=== PATIENT | female | born 1945 | race Two or more races ===

== ENCOUNTER → 2021-03-03 08:00 | Outpatient (CLI) | payer OTHER | END | disposition home or self-care (01) | LOC: LAB 08:00 → ADM 14:45 → EDSTATUS 03-10 14:45 → AMB-ENDOS 03-10 14:45 | PROVIDERS: ATTEND Surgery | DX: K62.5 Hemorrhage of anus and rectum (principal); K62.89 Other specified diseases of anus and rectum; K64.2 Third degree hemorrhoids; D64.89 Other specified anemias; Z12.11 Encounter for screening for malignant neoplasm of colon; Z03.818 Encounter for observation for suspected exposure to other biological agents ruled out ==

== ENCOUNTER 2023-12-04 08:00 | Outpatient (CLI) | payer OTHER | END 2023-12-04 08:01 | disposition home or self-care (01) | LOC: NUCLEAR 08:00 | PROVIDERS: ATTEND Internal Medicine Hematology & Oncology | DX: C50.411 Malignant neoplasm of upper-outer quadrant of right female breast (principal); C77.3 Secondary and unspecified malignant neoplasm of axilla and upper limb lymph nodes | CPT/HCPCS: 78815; A9552 ==

== ENCOUNTER 2024-07-05 07:58 | Outpatient (CLI) | payer OTHER | END 2024-07-05 07:59 | disposition home or self-care (01) | LOC: NUCLEAR 07:58 | PROVIDERS: ATTEND Internal Medicine | DX: C50.411 Malignant neoplasm of upper-outer quadrant of right female breast (principal); C50.611 Malignant neoplasm of axillary tail of right female breast | CPT/HCPCS: 78815; A9552 ==

== ENCOUNTER 2024-07-17 09:15 | Inpatient (IN) | payer OTHER ==
[~2024-07-17] VITALS: Ht 149.9 cm; Wt 54.0 kg
[2024-07-17 10:36] LABS: HEMATOCRIT 37.4 % (36.0-45.00); HEMOGLOBIN 12.8 g/dL (12.0-15.00); MEAN CELL VOLUME 90.9 fL (80.00-100.00); MEAN CORPUSCULAR HGB CONC 34.1 g/dl (32.0-36.0); PLATELET COUNT 297 K/uL (150-450); RED BLOOD COUNT 4.12 M/uL (4.00-6.00); RED CELL DISTRIBUTION WIDTH 16.8 % (11.5-14.5); URINE APPEARANCE Turbid; URINE BILIRRUBIN Negative (NEGATIVE); URINE BLOOD Negative; URINE COLOR Yellow; URINE KETONE Negative (NEGATIVE); URINE LEUKOCYTE Moderate; URINE NITRATE Negative; URINE PROTEIN Negative (NEGATIVE); URINE UROBILINOGEN 0.2 E.U./dl
[2024-07-17 10:37] LABS: URINE BACTERIA 8790.9 uL (0.0-1933)
[2024-07-17 10:46] LABS: URINE EPITHELIAL CELLS > 201.7 uL (0.0-38.8); URINE GLUCOSE 500 MG/DL (NEGATIVE); URINE RBC 1.8 uL (0.0-20.8)
[2024-07-17] MEDS ORDERED: SYNTHROID50 MCG PO (11:00)
[2024-07-17] MEDS ORDERED: NORVASC5 MG PO (11:00)
[2024-07-17] MEDS ORDERED: SYNJARDY XR 251 EACH PO (11:00)
[2024-07-17] MEDS ORDERED: COZAAR25 MG PO (11:00)
[2024-07-17] MEDS ORDERED: HYDROCHLOROTHIA25 MG PO (11:01)
[2024-07-17 11:11] LABS: INR 1.04; PARTIAL THROMBOPLASTIN TIME 30.2 SECONDS (22.0-34.0); PROTHROMBIN TIME 11.3 SECONDS (9.0-11.5)
[2024-07-17 11:17] LABS: ALBUMIN 4.3 gm/dL (3.4-5.0); BILIRUBIN TOTAL 0.59 mg/dL (0.3-1.2); CREATININE SERUM 0.79 mg/dL (0.55-1.02); GFR 70.2; GLOBULINA 3.8 G/DL (2.4-3.5); POTASSIUM 4.47 mEq/L (3.5-5.1); TOTAL PROTEIN 8.1 gm/dL (6.4-8.2)
[2024-07-23] MEDS ORDERED: CEFAZOLIN SODIUM 1,000 MG VIAL IV ONE (11:00)
[2024-07-23] MEDS ORDERED: METFORMIN HCL500 M1 (11:01)
[2024-07-23] MEDS ORDERED: CLOPIDOGREL BIS75 MG (11:01)
[2024-07-23] MEDS ORDERED: ATORVASTATIN CA20 MG (11:01)
[2024-07-23] MEDS ORDERED: CHLORTHALIDONE25 MG (11:02)
[2024-07-23] MEDS ORDERED: MORPHINE SULFATE 4 MG/ML VIAL IV ONE ×2 (12:20→13:35)
[2024-07-23] MEDS ORDERED: MEPERIDINE HCL/PF 50 MG/ML VIAL IM PRN (12:30)
[2024-07-23] MEDS ORDERED: POTASSIUM CHLORIDE-0.45% NACL 20 MEQ/1,000 ML PIGGYBAG IV NR (12:30)
[2024-07-23] MEDS ORDERED: OxyCODONE HCL/APAP UD (PERCOCET) PO PRN (12:30)
[2024-07-23] MEDS ORDERED: CEFAZOLIN SODIUM 1,000 MG VIAL IV SCH (17:00)
[2024-07-23 17:20] VITALS: BP 181/89; O2SAT 98
[2024-07-23] MEDS ORDERED: FAMOTIDINE/PF 20 MG/2 ML VIAL IV SCH (21:00)
[2024-07-23 21:50] VITALS: BP 121/85; O2SAT 100
[2024-07-24 00:25] VITALS: BP 151/74; O2SAT 97
[2024-07-24] MEDS ORDERED: ACETAMINOPHEN 500 MG GEL..CAP PO STA (07:02)
[2024-07-24 08:58] VITALS: BP 137/73; O2SAT 99
== END 2024-07-24 10:59 | disposition home or self-care (01) | DRG 582 ==
LOC: O/R 07-23 05:46 → SURG 07-23 05:46 → SURH 07-23 09:00 → SURG 07-23 15:13
PROVIDERS: ADMIT Specialist; ATTEND Specialist
PROC: 0HTT0ZZ Resection of Right Breast, Open Approach (ICD-10-PCS; principal; 2024-07-23 09:00)
DX: D05.11 Intraductal carcinoma in situ of right breast (principal); C77.3 Secondary and unspecified malignant neoplasm of axilla and upper limb lymph nodes; Z20.822 Contact with and (suspected) exposure to COVID-19

== ENCOUNTER 2024-07-26 10:25 | Inpatient (IN) | payer OTHER ==
[~2024-07-26] VITALS: Ht 142.2 cm; Wt 54.0 kg
[~2024-07-26 10:25] MED LIST: ATORVASTATIN CA20 MG; CHLORTHALIDONE25 MG; CLOPIDOGREL BIS75 MG; COZAAR25 MG PO; HYDROCHLOROTHIA25 MG PO; METFORMIN HCL500 M1; NORVASC5 MG PO; SYNJARDY XR 251 EACH PO; SYNTHROID50 MCG PO
--- NOTE | 2024-07-26 10:59 | NUR ---
PTE ALERTA Y ORIENTADA X3 EN COMPANIA DE ENCARGADA, QUIEN REFIERE PTE MCQUEEN ESTADO VOMINTANDO JALEESA, LUEGO DE OSIEL TENIDO OPERACION EL MARCEL , POR EL DR. FORRESTER. SE MIDEN SV Y SE UBICA.
[2024-07-26] MEDS ORDERED: PANTOPRAZOLE SODIUM 40 MG/VIAL VIAL IV ONE (13:00)
[2024-07-26] MEDS ORDERED: 0.9 % SODIUM CHLORIDE 1,000 ML IV ONE ×2 (13:00→17:45)
[2024-07-26 13:26] LABS: ABG PH 7.487 (7.35-7.45); ABG PO2 75.8 mmHg (80-100); ABG pCO2 38.9 mmHg (35-45); BASE EXCESS 5.2 mmol/l; BICARBONATE 28.8 mmol/l (23-25); SaO2 96.3 %
[2024-07-26 13:35] LABS: MEAN CELL VOLUME 90.1 fL (80.00-100.00); PLATELET COUNT 218 K/uL (150-450); RED BLOOD COUNT 2.26 M/uL (4.00-6.00); RED CELL DISTRIBUTION WIDTH 16.5 % (11.5-14.5)
[2024-07-26 13:38] LABS: HEMATOCRIT 20.3 % (36.0-45.00); HEMOGLOBIN 6.9 g/dL (12.0-15.00); MEAN CORPUSCULAR HEMOGLOBIN 30.5 pg (27.00-32.0)
[2024-07-26 13:50] LABS: INR 1.05; PARTIAL THROMBOPLASTIN TIME 21.7 SECONDS (22.0-34.0); PROTHROMBIN TIME 11.4 SECONDS (9.0-11.5)
[2024-07-26 13:57] LABS: ALBUMIN 3.3 gm/dL (3.4-5.0); BILIRUBIN TOTAL 0.38 mg/dL (0.3-1.2); CREATININE SERUM 1.05 mg/dL (0.55-1.02); GFR 50.56; GLOBULINA 3.3 G/DL (2.4-3.5); POTASSIUM 4.35 mEq/L (3.5-5.1); TOTAL PROTEIN 6.6 gm/dL (6.4-8.2)
--- NOTE | 2024-07-26 14:04 | NUR ---
SE RECIBE PTE ALERTA ORIENTADA X3.SE CARLI MUESTRAS DE LABORATORIO USANDO MEDIDAS ASEPTOCAS.SE ADMINISTRAN MEDICAMENTOS ALVARO ORDEN MEDICA.SE ORIENTA PTE SOBRE OBJETIVO DE TX MEDICO.PENDIENTE U/A.
--- NOTE | 2024-07-26 14:19 | NUR ---
SE RECIBE PTE ALERTA Y ORIENTADA X3 EN LA UNIDAD DE CHEST PAIN, SE CONECTA A MONITOR CARDIACO Y OXIMETRIA DE PULSO CONTINUA, PTE CON UN ANGIO #20 EN RT BAJANDO UN 0.9%NSS @60MLS/HRS, SE MANTIENE BAJO OBSERVACION POR CAMBIOS SIGNIFICATIVOS.
[2024-07-26 14:57] LABS: allen test SATISFACTORY; o2 21 %; puncture site RADIAL LEFT
--- NOTE | 2024-07-26 15:36 | NUR ---
SE RECIBE PTE FEMENINA ALERTA Y ORIENTADA EN PERSONA Y LUGAR DEL TURNO ANTERIOR, CONECTADA A MONITOR CARDIACO Y OXIMETRIA DE PULSO CONTINUA. PTE CON BUEN PATRON RESPIRATORIO Y SIN QUEJA DE DOLOR AL MOMENTO. VENOPUNCION EN BRAZO R+, SAMMI DE EDEMA Y ERITEMA RECIBIENDO TERAPIA DE IVFS 0.9NSS BAJANDO A 60ML/HR. PTE EN CAMA NIVEL MAS BAJO CON BARANDAS ELEVADAS Y FRENOS COLOCADOS POR SEGURIDAD. PENDIENTE CONSULTA CON YA NOTIFICADA. SE CARLI Y REPORTAN S/V. SE REMUEVE VENOPUNCION DE BRAZO R+, BAJO MEDIDAS ASEPTICAS. SE CANALZIA VENA X2 EN BRAZO L+ CON ANGIO #20 Y #22, BAJO MEDIDAS ASEPTICAS AREA SAMMI DE EDEMA Y ERITEMA. SE MANTIENE BAJO OBSERVACION POR CAMBIOS.
[2024-07-26] MEDS ORDERED: CEFTRIAXONE SODIUM 2,000 MG in 0.9 % SODIUM CHLORIDE 100 ML IV SCH (17:14)
[2024-07-26] MEDS ORDERED: PANTOPRAZOLE SODIUM 80 MG in 0.9 % SODIUM CHLORIDE 100 ML IV SCH (17:15)
[2024-07-26] MEDS ORDERED: PANTOPRAZOLE SODIUM 40 MG/VIAL VIAL IV PUSH ONE (17:15)
[2024-07-26] MEDS ORDERED: FUROsemide 20 MG/2 ML VIAL IV SCH (17:15)
[2024-07-26] MEDS ORDERED: OCTREOTIDE ACETATE 1,250 MCG in 0.9 % SODIUM CHLORIDE 250 ML IV SCH (17:15)
[2024-07-26] MEDS ORDERED: DILTIAZEM HCL 25 MG/5 ML VIAL IV ONE (17:15)
[2024-07-26] MEDS ORDERED: OCTREOTIDE ACETATE 0.05MG/ML (50MCG/ML) AMPUL IV ONE (17:15)
[2024-07-26] MEDS ORDERED: 0.9 % SODIUM CHLORIDE 1,000 ML IV SCH (17:30)
[2024-07-26] MEDS ORDERED: DEXTROSE 50 % IN WATER 0.5 G/ML DISP.SYRIN IV PRN (17:45)
[2024-07-26] MEDS ORDERED: INSULIN LISPRO 1,000 UNIT/10 ML UNITS SUBCUTANEO PRN (17:45)
[2024-07-26] MEDS ORDERED: ONDANSETRON HCL 4 MG in 0.9 % SODIUM CHLORIDE 50 ML IV ONE (17:45)
[2024-07-26] MEDS ORDERED: ONDANSETRON HCL 4 MG in 0.9 % SODIUM CHLORIDE 50 ML IV PRN (17:45)
[2024-07-26 19:24] LABS: PHOSPHOROUS 5.2 mg/dL (2.5-4.9)
[2024-07-26 19:27] LABS: C-REACTIVE PROTEIN 3.15 MG/DL (0.00-0.29)
[2024-07-26 19:38] VITALS: BP 132/77; O2SAT 99
[2024-07-26 19:45] LABS: COL EPI 119 SECONDS (82-175)
[2024-07-26 21:00] VITALS: BP 106/75; O2SAT 100
[2024-07-26] MEDS ORDERED: INSULIN NPH HUMAN ISOPHANE 1,000 UNITS/10 ML UNITS SUBCUTANEO SCH (21:00)
[2024-07-26 21:42] LABS: URINE APPEARANCE Clear; URINE BILIRRUBIN Negative (NEGATIVE); URINE BLOOD Negative; URINE COLOR Yellow; URINE KETONE Trace (NEGATIVE); URINE LEUKOCYTE Negative; URINE NITRATE Negative; URINE PROTEIN Negative (NEGATIVE); URINE UROBILINOGEN 0.2 E.U./dl
[2024-07-26 21:45] LABS: URINE BACTERIA 250.7 uL (0.0-1933); URINE EPITHELIAL CELLS 10.9 uL (0.0-38.8); URINE WBC 3.8 uL (0.0-23.2)
[2024-07-26 21:53] LABS: URINE GLUCOSE >=1000 MG/DL (NEGATIVE); URINE RBC 0.7 uL (0.0-20.8)
[2024-07-26 23:09] VITALS: BP 148/74; O2SAT 100
[2024-07-27 04:02] VITALS: BP 145/80; O2SAT 99
[2024-07-27] MEDS ORDERED: LEVOTHYROXINE SODIUM 50 MCG TABLET PO SCH (06:00)
[2024-07-27 08:01] VITALS: BP 150/57; O2SAT 100
[2024-07-27 12:00] VITALS: BP 152/84; O2SAT 100
[2024-07-27] MEDS ORDERED: ENALAPRILAT DIHYDRATE 1.25 MG/ML VIAL IV SCH (12:00)
[2024-07-27 15:10] VITALS: BP 155/93; O2SAT 100
[2024-07-27] MEDS ORDERED: OCTREOTIDE ACETATE IV SCH (18:00)
[2024-07-27 20:00] VITALS: BP 157/88; O2SAT 100
[2024-07-27 23:35] VITALS: BP 144/77; O2SAT 100
[2024-07-28 04:15] VITALS: BP 159/78; O2SAT 100
[2024-07-28] MEDS ORDERED: MORPHINE SULFATE 2 MG/ML SYRINGE IV ONE (05:15)
[2024-07-28 07:33] VITALS: BP 142/95; O2SAT 100
[2024-07-28] MEDS ORDERED: GABAPENTIN 300 MG CAPSULE PO SCH (09:00)
[2024-07-28 12:00] VITALS: BP 159/88; O2SAT 100
[2024-07-28 12:33] LABS: HEMATOCRIT 35.1 % (36.0-45.00); HEMOGLOBIN 12.1 g/dL (12.0-15.00); MEAN CELL VOLUME 85.9 fL (80.00-100.00); MEAN CORPUSCULAR HEMOGLOBIN 29.6 pg (27.00-32.0); MEAN CORPUSCULAR HGB CONC 34.4 g/dl (32.0-36.0); PLATELET COUNT 231 K/uL (150-450); RED BLOOD COUNT 4.08 M/uL (4.00-6.00); RED CELL DISTRIBUTION WIDTH 16.5 % (11.5-14.5)
[2024-07-28 13:27] LABS: ALBUMIN 3.2 gm/dL (3.4-5.0); BILIRUBIN TOTAL 0.66 mg/dL (0.3-1.2); CALCIUM 8.5 mg/dL (8.5-10.1); CREATININE SERUM 0.82 mg/dL (0.55-1.02); GFR 67.25; GLOBULINA 3.5 G/DL (2.4-3.5); PHOSPHOROUS 2.9 mg/dL (2.5-4.9); TOTAL PROTEIN 6.7 gm/dL (6.4-8.2)
[2024-07-28 13:39] LABS: TSH 0.101 uIU/mL (0.358-3.74)
[2024-07-28 13:42] LABS: POTASSIUM 2.73 mEq/L (3.5-5.1)
[2024-07-28 15:40] VITALS: BP 154/78; O2SAT 100
[2024-07-28] MEDS ORDERED: POTASSIUM CHLORIDE IN WATER 40 MEQ/100 ML PIGGYBAG IV SCH (17:00)
[2024-07-28 20:00] VITALS: BP 128/73; O2SAT 100
[2024-07-28 23:37] VITALS: BP 112/66; O2SAT 100
[2024-07-29 04:03] VITALS: BP 138/81; O2SAT 100
[2024-07-29 07:00] VITALS: BP 164/75; O2SAT 100
[2024-07-29 12:39] VITALS: BP 156/89; O2SAT 95
[2024-07-29 15:23] VITALS: BP 151/80; O2SAT 98
[2024-07-29 20:00] VITALS: BP 161/82; O2SAT 100
[2024-07-29] MEDS ORDERED: PANTOPRAZOLE SODIUM 40 MG/VIAL VIAL IV PUSH SCH (21:00)
[2024-07-29 23:11] VITALS: BP 162/81; O2SAT 100
[2024-07-30 04:00] VITALS: BP 151/80; O2SAT 100
[2024-07-30 06:54] LABS: HEMATOCRIT 33.6 % (36.0-45.00); HEMOGLOBIN 11.4 g/dL (12.0-15.00); MEAN CELL VOLUME 90.4 fL (80.00-100.00); MEAN CORPUSCULAR HEMOGLOBIN 30.5 pg (27.00-32.0); MEAN CORPUSCULAR HGB CONC 33.7 g/dl (32.0-36.0); PLATELET COUNT 222 K/uL (150-450); RED BLOOD COUNT 3.72 M/uL (4.00-6.00); RED CELL DISTRIBUTION WIDTH 17.1 % (11.5-14.5)
[2024-07-30 07:18] VITALS: BP 136/84; O2SAT 100
[2024-07-30 07:40] LABS: ALBUMIN 2.8 gm/dL (3.4-5.0); BILIRUBIN TOTAL 0.64 mg/dL (0.3-1.2); CALCIUM 8.5 mg/dL (8.5-10.1); CREATININE SERUM 0.68 mg/dL (0.55-1.02); FREE TRIODOTIRONINE 0.76 pg/ml (2.18-3.98); GFR 83.47; GLOBULINA 2.9 G/DL (2.4-3.5); MAGNESIUM 2.1 mg/dL (1.8-2.4); POTASSIUM 3.17 mEq/L (3.5-5.1); T4 FREE 1.06 NG/ML (0.76-1.46); TOTAL PROTEIN 5.7 gm/dL (6.4-8.2)
[2024-07-30 12:11] VITALS: BP 139/76; O2SAT 100
[2024-07-30 15:24] VITALS: BP 142/67; O2SAT 97
[2024-07-30 20:00] VITALS: BP 125/70; O2SAT 100
[2024-07-30] MEDS ORDERED: SODIUM CHLORIDE 0.45 % 1,000 ML IV SCH (21:15)
[2024-07-30 23:34] VITALS: BP 124/66; O2SAT 97
[2024-07-31 04:00] VITALS: BP 140/67; O2SAT 100
[2024-07-31 07:30] VITALS: BP 139/59; O2SAT 100
[2024-07-31 08:41] LABS: HEMATOCRIT 31.9 % (36.0-45.00); HEMOGLOBIN 10.8 g/dL (12.0-15.00); MEAN CELL VOLUME 88.6 fL (80.00-100.00); MEAN CORPUSCULAR HEMOGLOBIN 29.9 pg (27.00-32.0); MEAN CORPUSCULAR HGB CONC 33.7 g/dl (32.0-36.0); PLATELET COUNT 188 K/uL (150-450); RED CELL DISTRIBUTION WIDTH 16.3 % (11.5-14.5)
[2024-07-31 09:51] LABS: ALBUMIN 2.5 gm/dL (3.4-5.0); BILIRUBIN TOTAL 0.62 mg/dL (0.3-1.2); CALCIUM 7.8 mg/dL (8.5-10.1); CREATININE SERUM 0.38 mg/dL (0.55-1.02); GFR 163.36; GLOBULINA 2.6 G/DL (2.4-3.5); MAGNESIUM 1.7 mg/dL (1.8-2.4); POTASSIUM 3.22 mEq/L (3.5-5.1); TOTAL PROTEIN 5.1 gm/dL (6.4-8.2)
[2024-07-31 12:00] VITALS: BP 132/71; O2SAT 100
[2024-07-31] MEDS ORDERED: MAGNESIUM SULFATE IN WATER 50 ML IV NR (14:30)
[2024-07-31 15:37] VITALS: BP 124/67; O2SAT 100
[2024-07-31] MEDS ORDERED: POTASSIUM CHLORIDE IN WATER 40 MEQ/100 ML PIGGYBAG IV SCH (17:00)
[2024-07-31] MEDS ORDERED: PANTOPRAZOLE SODIUM 40 MG TABLET.DR PO SCH (17:00)
[2024-08-01 01:06] VITALS: BP 136/68
[2024-08-01 08:36] VITALS: BP 148/80; O2SAT 98
[2024-08-01 16:08] LABS: HEMOGLOBIN 10.8 g/dL (12.0-15.00); MEAN CELL VOLUME 88.8 fL (80.00-100.00); MEAN CORPUSCULAR HGB CONC 33.7 g/dl (32.0-36.0); PLATELET COUNT 183 K/uL (150-450); RED CELL DISTRIBUTION WIDTH 16.3 % (11.5-14.5)
[2024-08-01 18:11] VITALS: BP 141/85; O2SAT 97
[2024-08-02 01:51] VITALS: BP 135/77
[2024-08-02] MEDS ORDERED: INSULIN NPH HUM/REG INSULIN HM 1,000 UNIT/10 ML UNITS SUBCUTANEO SCH (08:00)
[2024-08-02 09:11] VITALS: BP 135/86; O2SAT 96
[2024-08-02] MEDS ORDERED: PANTOPRAZOLE SO40 MG PO (16:53)
[2024-08-02 18:06] VITALS: BP 102/63; O2SAT 97
== END 2024-08-02 21:03 | disposition home or self-care (01) | DRG 811 ==
LOC: ER 10:25 → ICU-2 17:49 → ICU 21:08 → MEDJ 07-31 20:16 → MEDI 08-02 16:38
PROVIDERS: General Practice; Internal Medicine Hematology & Oncology; ADMIT Internal Medicine; ATTEND Internal Medicine
PROC: 4A12X4Z Monitoring of Cardiac Electrical Activity, External Approach (ICD-10-PCS; 2024-07-26)
PROC: BW21ZZZ Computerized Tomography (CT Scan) of Abdomen and Pelvis (ICD-10-PCS; 2024-07-26)
PROC: BB24ZZZ Computerized Tomography (CT Scan) of Bilateral Lungs (ICD-10-PCS; 2024-07-26)
PROC: 30233N1 Transfusion of Nonautologous Red Blood Cells into Peripheral Vein, Percutaneous Approach (ICD-10-PCS; principal; 2024-07-27)
PROC: 3E1G78Z Irrigation of Upper GI using Irrigating Substance, Via Natural or Artificial Opening (ICD-10-PCS; 2024-07-27)
PROC: 02HV33Z Insertion of Infusion Device into Superior Vena Cava, Percutaneous Approach (ICD-10-PCS; 2024-07-27)
PROC: 3E04329 Introduction of Other Anti-infective into Central Vein, Percutaneous Approach (ICD-10-PCS; 2024-07-27)
PROC: 0DJ08ZZ Inspection of Upper Intestinal Tract, Via Natural or Artificial Opening Endoscopic (ICD-10-PCS; 2024-07-29)
PROC: 3E0336Z Introduction of Nutritional Substance into Peripheral Vein, Percutaneous Approach (ICD-10-PCS; 2024-07-29)
PROC: BR29ZZZ Computerized Tomography (CT Scan) of Lumbar Spine (ICD-10-PCS; 2024-08-01)
DX: D64.89 Other specified anemias (principal); J96.90 Respiratory failure, unspecified, unspecified whether with hypoxia or hypercapnia; K92.0 Hematemesis; L76.22 Postprocedural hemorrhage of skin and subcutaneous tissue following other procedure; I48.20 Chronic atrial fibrillation, unspecified; C50.411 Malignant neoplasm of upper-outer quadrant of right female breast; D63.0 Anemia in neoplastic disease; E11.65 Type 2 diabetes mellitus with hyperglycemia; K25.9 Gastric ulcer, unspecified as acute or chronic, without hemorrhage or perforation; D3A.8 Other benign neuroendocrine tumors; I10 Essential (primary) hypertension; E03.9 Hypothyroidism, unspecified; Z79.4 Long term (current) use of insulin; Z79.84 Long term (current) use of oral hypoglycemic drugs; Z92.21 Personal history of antineoplastic chemotherapy; Y83.8 Other surgical procedures as the cause of abnormal reaction of the patient, or of later complication, without mention of misadventure at the time of the procedure

== ENCOUNTER 2024-11-18 13:33 | Inpatient (IN) | payer OTHER ==
[~2024-11-18] VITALS: Ht 147.3 cm; Wt 50.8 kg
[~2024-11-18 13:33] MED LIST changes: +PANTOPRAZOLE SO40 MG PO
--- NOTE | 2024-11-18 13:50 | NUR ---
PACIENTE ALERTA Y ORIENTADA X3 QUIEN REFIERE DOLOR ABDOMINAL Y VOMITOS CON JALEESA DESDE EL DOMITILA DE AIYANA. CUIDADORA INDICA PACIENTE PRESENTO VOMITOS X3 EN EL DOMITILA DE HOY ULTIMO VOMITO HACE HOME HORA.
[2024-11-18] MEDS ORDERED: ONDANSETRON HCL 2 MG/ML VIAL IV STA (14:12)
[2024-11-18] MEDS ORDERED: FAMOTIDINE/PF 20 MG in 0.9 % SODIUM CHLORIDE 8 ML IV PUSH STA (14:12)
[2024-11-18] MEDS ORDERED: 0.9 % SODIUM CHLORIDE 1,000 ML IV SCH ×2 (14:15→19:45)
[2024-11-18] MEDS ORDERED: ONDANSETRON HCL 2 MG/ML VIAL ONE (14:20)
[2024-11-18] MEDS ORDERED: FAMOTIDINE/PF 20 MG/2 ML VIAL ONE (14:20)
[2024-11-18] MEDS ORDERED: BARIUM SULFATE 450 ML ORAL.SUSP PO ONE (14:21)
--- NOTE | 2024-11-18 14:31 | NUR ---
SE ORIENTA A PACIENTE SOBRE TX MEDICO, REFIERE ENTENDER. SE REALIZAN MUESTRAS DE LABORATORIO BAJO MEDIDAS ASEPTICAS. SE ADMINISTRAN MEDICAMENTOS ALVARO ORDEN MEDICA. SE COORDINA CT. PACIENTE MANEJADA POR . PENDIENTE RE-EVALUACION MEDICA.
[2024-11-18 15:20] LABS: CALCIUM 9.5 mg/dL (8.5-10.1); CREATININE SERUM 1.23 mg/dL (0.55-1.02); GFR 42.12; POTASSIUM 3.19 mEq/L (3.5-5.1)
--- NOTE | 2024-11-18 15:20 | NUR ---
SE RECIBE A PACIENTE ALERTA Y ORIENTADO X3 EN CAMA A NIVEL DE PISO JUNTO CON BARRANDAS ELEVADAS. CANALIZADA CON #20 EN LT ARM BAJANDO 0.9NSS A 100ML/HR. PENDIENTE A ENTREGA DE U/A Y CT PO A LAS 4:50PM.
[2024-11-18 15:34] LABS: MEAN CELL VOLUME 87.4 fL (80.00-100.00); MEAN CORPUSCULAR HGB CONC 33.9 g/dl (32.0-36.0); PLATELET COUNT 272 K/uL (150-450); RED BLOOD COUNT 2.57 M/uL (4.00-6.00); RED CELL DISTRIBUTION WIDTH 16.2 % (11.5-14.5)
[2024-11-18 15:39] LABS: HEMATOCRIT 22.4 % (36.0-45.00); HEMOGLOBIN 7.6 g/dL (12.0-15.00); MEAN CORPUSCULAR HEMOGLOBIN 29.5 pg (27.00-32.0)
[2024-11-18 17:36] LABS: URINE APPEARANCE Clear; URINE BILIRRUBIN Negative (NEGATIVE); URINE BLOOD Negative; URINE COLOR Yellow; URINE KETONE Negative (NEGATIVE); URINE LEUKOCYTE Negative; URINE NITRATE Negative; URINE PROTEIN Negative (NEGATIVE); URINE UROBILINOGEN 0.2 E.U./dl
[2024-11-18 17:40] LABS: URINE BACTERIA 862.5 uL (0.0-1933); URINE EPITHELIAL CELLS 23.2 uL (0.0-38.8); URINE WBC 11.7 uL (0.0-23.2)
[2024-11-18 17:47] LABS: URINE CAST 0.29 uL (0.0-1.40); URINE GLUCOSE >=1000 MG/DL (NEGATIVE); URINE RBC 0.7 uL (0.0-20.8)
[2024-11-18] MEDS ORDERED: CEFTRIAXONE SODIUM 2,000 MG in 0.9 % SODIUM CHLORIDE 100 ML IV SCH (19:32)
[2024-11-18] MEDS ORDERED: PANTOPRAZOLE SODIUM 80 MG in 0.9 % SODIUM CHLORIDE 100 ML IV SCH (19:45)
[2024-11-18] MEDS ORDERED: ONDANSETRON HCL 4 MG in 0.9 % SODIUM CHLORIDE 50 ML IV PRN (19:45)
[2024-11-18] MEDS ORDERED: PANTOPRAZOLE SODIUM 40 MG/VIAL VIAL IV PUSH ONE (19:45)
[2024-11-18] MEDS ORDERED: ENALAPRILAT DIHYDRATE 1.25 MG/ML VIAL IV PRN (20:00)
[2024-11-18 22:19] LABS: INR 1.05; PARTIAL THROMBOPLASTIN TIME 20.6 SECONDS (22.0-34.0); PROTHROMBIN TIME 11.4 SECONDS (9.0-11.5)
[2024-11-18] MEDS ORDERED: CEFTRIAXONE SODIUM 2,000 MG VIAL ONE (22:36)
[2024-11-18] MEDS ORDERED: FUROsemide 20 MG/2 ML VIAL IV SCH (23:00)
[2024-11-19] VITALS (7 sets, daily range): BP systolic 108–147; BP diastolic 55–84; O2SAT 96–100
[2024-11-19] MEDS ORDERED: CHLORHEXIDINE GLUCONATE 120 ML BOTTLE TOP ONE (09:36)
[2024-11-19] MEDS ORDERED: INSULIN LISPRO 1,000 UNIT/10 ML UNITS SUBCUTANEO PRN (14:30)
[2024-11-19] MEDS ORDERED: DEXTROSE 50 % IN WATER 0.5 G/ML DISP.SYRIN IV PRN (14:30)
[2024-11-19 16:39] LABS: URINE APPEARANCE Clear; URINE BILIRRUBIN Negative (NEGATIVE); URINE BLOOD Negative; URINE COLOR Yellow; URINE KETONE Negative (NEGATIVE); URINE LEUKOCYTE Negative; URINE NITRATE Negative; URINE PROTEIN Negative (NEGATIVE); URINE UROBILINOGEN 0.2 E.U./dl
[2024-11-19 16:43] LABS: URINE BACTERIA 4.8 uL (0.0-1933); URINE WBC 3.9 uL (0.0-23.2)
[2024-11-19 17:04] LABS: URINE CAST 0.14 uL (0.0-1.40); URINE EPITHELIAL CELLS 0.6 uL (0.0-38.8); URINE GLUCOSE >=1000 MG/DL (NEGATIVE); URINE RBC 0.7 uL (0.0-20.8)
[2024-11-19] MEDS ORDERED: LORazepam 2 MG/ML VIAL IV NR (17:30)
[2024-11-20 01:23] LABS: HEMATOCRIT 43.8 % (36.0-45.00); MEAN CELL VOLUME 86.6 fL (80.00-100.00); MEAN CORPUSCULAR HGB CONC 34.6 g/dl (32.0-36.0); PLATELET COUNT 222 K/uL (150-450); RED BLOOD COUNT 5.06 M/uL (4.00-6.00); RED CELL DISTRIBUTION WIDTH 15.7 % (11.5-14.5)
[2024-11-20 01:25] LABS: HEMOGLOBIN 15.2 g/dL (12.0-15.00)
[2024-11-20 04:00] VITALS: BP 89/63; O2SAT 100
[2024-11-20 06:57] VITALS: BP 129/83; O2SAT 100
[2024-11-20 12:00] VITALS: BP 136/79; O2SAT 100
[2024-11-20 15:37] VITALS: BP 126/78; O2SAT 100
[2024-11-20 20:00] VITALS: BP 135/81; O2SAT 97
[2024-11-20] MEDS ORDERED: ORPHENADRINE CITRATE 100 MG TABLET PO STA (20:02)
[2024-11-20 23:24] VITALS: BP 111/69; O2SAT 97
[2024-11-21 03:59] VITALS: BP 178/79; O2SAT 98
[2024-11-21 05:52] VITALS: BP 164/91; O2SAT 98
[2024-11-21 07:00] LABS: URINE APPEARANCE Error; URINE BILIRRUBIN Negative (NEGATIVE); URINE BLOOD Large; URINE COLOR Orange; URINE KETONE 15 (NEGATIVE); URINE LEUKOCYTE Moderate; URINE NITRATE Negative; URINE PROTEIN 30 (NEGATIVE); URINE UROBILINOGEN 0.2 E.U./dl
[2024-11-21 07:03] LABS: URINE BACTERIA 176.2 uL (0.0-1933); URINE CAST 1.47 uL (0.0-1.40); URINE EPITHELIAL CELLS 4.7 uL (0.0-38.8); URINE RBC 3266.4 uL (0.0-20.8); URINE WBC 293.4 uL (0.0-23.2)
[2024-11-21 07:19] VITALS: BP 91/66; O2SAT 98
[2024-11-21 07:20] LABS: URIC ACID 4.5 mg/dL (2.5-7.5)
[2024-11-21 07:31] LABS: URINE GLUCOSE >=1000 MG/DL (NEGATIVE)
[2024-11-21 07:34] LABS: T4 TOTAL 8.43 UG/DL (4.8-13.9); TSH 3.05 uIU/mL (0.358-3.74)
[2024-11-21 07:36] LABS: ALBUMIN 3.7 gm/dL (3.4-5.0); BILIRUBIN TOTAL 0.87 mg/dL (0.3-1.2); CALCIUM 8.8 mg/dL (8.5-10.1); CREATININE SERUM 0.67 mg/dL (0.55-1.02); GFR 84.9; GLOBULINA 3.3 G/DL (2.4-3.5)
[2024-11-21 07:51] LABS: POTASSIUM 2.44 mEq/L (3.5-5.1)
[2024-11-21] MEDS ORDERED: ORPHENADRINE CITRATE 100 MG TABLET PO SCH (09:00)
[2024-11-21] MEDS ORDERED: POTASSIUM CHLORIDE 20MEQ/100ML H2O PB IV SCH (09:00)
[2024-11-21] MEDS ORDERED: POTASSIUM CHLORIDE 20MEQ/100ML H2O PB IV ONE (09:55)
[2024-11-21] MEDS ORDERED: SODIUM CL 0.9% 100 ML IV.SOLN IV ONE (10:30)
[2024-11-21 12:00] VITALS: BP 137/72; O2SAT 100
[2024-11-21] MEDS ORDERED: BISACODYL 5 MG TABLET.EC PO NR (12:00)
[2024-11-21 17:45] VITALS: BP 158/80
[2024-11-22 01:26] VITALS: BP 97/60; O2SAT 96
[2024-11-22] MEDS ORDERED: PANTOPRAZOLE SODIUM 40 MG/VIAL VIAL ONE (05:42)
[2024-11-22 07:21] LABS: ALBUMIN 3.2 gm/dL (3.4-5.0); BILIRUBIN TOTAL 0.53 mg/dL (0.3-1.2); CALCIUM 8.8 mg/dL (8.5-10.1); CREATININE SERUM 0.62 mg/dL (0.55-1.02); GFR 92.85; GLOBULINA 3.1 G/DL (2.4-3.5); TOTAL PROTEIN 6.3 gm/dL (6.4-8.2)
[2024-11-22 07:23] LABS: HEMATOCRIT 43.6 % (36.0-45.00); HEMOGLOBIN 14.7 g/dL (12.0-15.00); MEAN CORPUSCULAR HGB CONC 33.7 g/dl (32.0-36.0); RED BLOOD COUNT 4.89 M/uL (4.00-6.00); RED CELL DISTRIBUTION WIDTH 15.5 % (11.5-14.5)
[2024-11-22 07:31] LABS: POTASSIUM 3.13 mEq/L (3.5-5.1)
[2024-11-22 08:17] LABS: PLATELET COUNT 217 K/uL (150-450)
[2024-11-22 08:34] VITALS: BP 118/69; O2SAT 97
[2024-11-22] MEDS ORDERED: METROnidazole 500 MG TABLET PO SCH (13:03)
[2024-11-22] MEDS ORDERED: POTASSIUM CHLORIDE IN WATER 100 ML IV NR (14:00)
[2024-11-22] MEDS ORDERED: BISACODYL 5 MG TABLET.EC PO NR (17:00)
[2024-11-22] MEDS ORDERED: POTASSIUM CHLORIDE IN WATER 100 ML IV SCH (17:00)
[2024-11-22 17:08] VITALS: BP 133/76; O2SAT 98
[2024-11-23 03:04] VITALS: BP 144/80; O2SAT 98
[2024-11-23] MEDS ORDERED: LEVOTHYROXINE SODIUM 50 MCG TABLET PO SCH (06:00)
[2024-11-23] MEDS ORDERED: PANTOPRAZOLE SODIUM 40 MG/VIAL VIAL IV SCH (09:00)
[2024-11-23 09:45] VITALS: BP 157/84; O2SAT 99
[2024-11-23 16:15] VITALS: BP 143/79; O2SAT 97
[2024-11-24 00:46] VITALS: BP 148/84
[2024-11-24 08:13] LABS: HEMATOCRIT 39.3 % (36.0-45.00); HEMOGLOBIN 13.2 g/dL (12.0-15.00); MEAN CELL VOLUME 89.5 fL (80.00-100.00); MEAN CORPUSCULAR HGB CONC 33.5 g/dl (32.0-36.0); PLATELET COUNT 275 K/uL (150-450); RED BLOOD COUNT 4.39 M/uL (4.00-6.00); RED CELL DISTRIBUTION WIDTH 16.1 % (11.5-14.5)
[2024-11-24 08:37] LABS: CREATININE SERUM 0.72 mg/dL (0.55-1.02); GFR 78.14; MAGNESIUM 1.8 mg/dL (1.8-2.4); PHOSPHOROUS 3.1 mg/dL (2.5-4.9); POTASSIUM 4.14 mEq/L (3.5-5.1)
[2024-11-24 09:00] VITALS: BP 132/84; O2SAT 97
[2024-11-24] MEDS ORDERED: LACTULOSE 20 G/30 ML BLIST.PACK PO SCH (09:00)
[2024-11-24 15:28] LABS: ob NEGATIVE (NEGATIVE)
[2024-11-24 17:17] VITALS: BP 158/91; O2SAT 97
[2024-11-24] MEDS ORDERED: POLYETHYLENE GLYCOL 3350 17 GM BLIST.PACK PO SCH (21:00)
[2024-11-25 00:51] VITALS: BP 165/93
[2024-11-25 09:47] VITALS: BP 161/90; O2SAT 96
[2024-11-25 16:28] VITALS: BP 135/88; O2SAT 98
[2024-11-26 01:38] VITALS: BP 147/78
[2024-11-26] MEDS ORDERED: INSULIN NPH HUM/REG INSULIN HM 1,000 UNIT/10 ML UNITS SUBCUTANEO SCH (08:00)
[2024-11-26 08:41] VITALS: BP 170/88
[2024-11-26] MEDS ORDERED: PROTONIX40 MG PO (14:54)
[2024-11-26] MEDS ORDERED: POLY119PG PO (14:54)
== END 2024-11-26 15:30 | disposition home or self-care (01) | DRG 812 ==
LOC: ER 13:36 → ICU 21:11 → ICU-2 21:11 → ICU 11-19 02:28 → MEDI 11-21 14:44
PROVIDERS: Emergency Medicine; General Practice; Internal Medicine Endocrinology, Diabetes & Metabolism; Internal Medicine Geriatric Medicine; Internal Medicine Nephrology; ADMIT Internal Medicine; ATTEND Internal Medicine
PROC: BW21ZZZ Computerized Tomography (CT Scan) of Abdomen and Pelvis (ICD-10-PCS; principal; 2024-11-18)
PROC: BW28ZZZ Computerized Tomography (CT Scan) of Head (ICD-10-PCS; 2024-11-18)
PROC: 30233L1 Transfusion of Nonautologous Fresh Plasma into Peripheral Vein, Percutaneous Approach (ICD-10-PCS; 2024-11-19)
PROC: B246ZZZ Ultrasonography of Right and Left Heart (ICD-10-PCS; 2024-11-20)
PROC: 0JB63ZZ Excision of Chest Subcutaneous Tissue and Fascia, Percutaneous Approach (ICD-10-PCS; 2024-11-20)
PROC: 4A12X4Z Monitoring of Cardiac Electrical Activity, External Approach (ICD-10-PCS; 2024-11-21)
DX: D64.89 Other specified anemias (principal); E87.1 Hypo-osmolality and hyponatremia; K92.2 Gastrointestinal hemorrhage, unspecified; N17.8 Other acute kidney failure; E87.6 Hypokalemia; D72.828 Other elevated white blood cell count; E86.0 Dehydration; E11.9 Type 2 diabetes mellitus without complications; E78.5 Hyperlipidemia, unspecified; I10 Essential (primary) hypertension; K59.09 Other constipation; Z90.11 Acquired absence of right breast and nipple; C50.911 Malignant neoplasm of unspecified site of right female breast; E03.9 Hypothyroidism, unspecified; Z79.4 Long term (current) use of insulin

== ENCOUNTER 2025-01-07 08:27 | Outpatient (CLI) | payer OTHER ==
[~2025-01-07 08:27] MED LIST changes: +POLY119PG PO; +PROTONIX40 MG PO
== END 2025-01-07 08:28 | disposition home or self-care (01) ==
LOC: NUCLEAR 08:27
PROVIDERS: ATTEND Internal Medicine Hematology & Oncology
DX: C50.411 Malignant neoplasm of upper-outer quadrant of right female breast (principal)
CPT/HCPCS: 78815; A9552

== ENCOUNTER 2025-07-02 13:30 | Outpatient (CLI) | payer OTHER | END 2025-07-02 13:32 | disposition home or self-care (01) | LOC: MAMO-SONO 13:30 | PROVIDERS: ATTEND Specialist | DX: Z90.11 Acquired absence of right breast and nipple (principal); Z85.3 Personal history of malignant neoplasm of breast ==